=== PATIENT | female | born 2000 | race Caucasian/White ===

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

== ENCOUNTER 2020-03-12 19:20 | Emergency (ER) | payer OTHER, SELFPAY ==
[2020-03-12 19:24] VITALS: BP 135/86; PULSE 100; RESP 18; TEMP 36.6; O2SAT 100
[2020-03-12 21:46] VITALS: BP 123/89; PULSE 92; RESP 20; TEMP 37; O2SAT 100
--- NOTE | 2020-03-12 22:58 | ED.ANXIETY ---
HPI - Anxiety General Chief Complaint: Anxiety Stated Complaint: anxiety attack Time Seen by Provider: 03/12/20 22:48 History of Present Illness HPI narrative: Patient presents with her boyfriend for anxiety and panic attack today. She started breathing hard could not catch her breath heart was racing, then she started stuttering, and having tics . She has a bottle of Lexapro and Atarax in her back that she has not started yet. Her appointment with her psychiatrist is next month. She has a diagnosis of depression and anxiety. She used to have a diagnosis of posttraumatic stress disorder but they remove that. She used to take Klonopin and it worked really well. She took 1 of her boyfriends Xamelvin recinos. It only helped a little. She had to wait to be seen here in the ED, and her symptoms improved. 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 She got lightheaded at work, and they told her that her blood pools in her legs. She is waiting to get released so that she can go back to her job. Now she is worried about money. complaint: anxiety and heart racing Onset (ago): hour(s) Symptoms: dyspnea, palpitations and other Severity: moderate Place: home History of similar episodes: Yes Provoking factors: emotional stress, work/job stress and medication change Related Data Allergies Allergy/AdvReac Type Severity Reaction Status Date / Time Sulfa (Sulfonamide Allergy Mild Rash Verified 02/01/19 15:14 Antibiotics) Review of Systems Review of Systems: Narrative: CONSTITUTIONAL: Denies fever, chills, or sweats. EYES: Denies visual changes, redness, or discharge. ENT: Denies rhinorrhea, congestion, sore throat, or otalgia. CARDIOVASCULAR: Denies chest pain, palpitations, or edema. RESPIRATORY: Denies cough or dyspnea. GASTROINTESTINAL: Denies abdominal pain, nausea, vomiting, or diarrhea. GENITOURINARY: Denies dysuria or hematuria. SKIN: Denies rash or itching. MUSCULOSKELETAL: Denies back pain, joint pain, or myalgia. NEUROLOGIC: Denies headache, numbness, or weakness. PSYCHIATRIC: He has anxiety and depression. [facility] Past Medical History Medical History (Updated 03/12/20 @ 23:01 by Liz Hamm MD) Acute anxiety Exam Narrative: Exam Narrative: GENERAL: Well-appearing, well-nourished, and in no acute distress. Anxious young woman. HEAD: Normocephalic, atraumatic. EYES: PERRLA and EOMI. ENT: Nares clear, no rhinorrhea or epistaxis. Mucous membranes moist. NECK: Supple. CHEST: Clear to auscultation. No respiratory distress. HEART: Regular rate and rhythm. No murmur heard. Normal peripheral pulses. ABDOMEN: Soft, nontender, nondistended, normal active bowel sounds. EXTREMITIES: Normal range of motion. No edema. SKIN: Warm, dry, no rash. NEURO: No focal deficits. Alert and oriented x3. PSYCH: Normal mood and affect. Const: General: no acute distress and alert Orientation/consciousness: patient oriented x3 Course Vital Signs Vital signs: Vital Signs Temperature 97.8 F 03/12/20 19:24 Pulse Rate 100 03/12/20 19:24 Respiratory Rate 18 03/12/20 19:24 Blood Pressure 135/86 03/12/20 19:24 Pulse Oximetry 100 03/12/20 19:24 Temperature 98.6 F 03/12/20 21:46 Pulse Rate 92 03/12/20 21:46 Respiratory Rate 20 03/12/20 21:46 Blood Pressure 123/89 03/12/20 21:46 Pulse Oximetry 100 03/12/20 21:46 MDM - Anxiety Medical Records Attestation: I reviewed the patient's medical records. Lab Data Attestation: I reviewed the patient's lab results. Discharge Plan Discharge Clinical Impression: Acute anxiety, Hyperventilation, Panic disorder Patient Disposition: Home, Self-Care Condition: Improved Instructions: Anxiety (ED) Additional Instructions: Start taking your psych meds. Call your psychiatrist office and see if you can get an earlier appointment. Follow-up/Referrals: Luis Fernando,Kaylee Pepper MD [Primary Care Provider] - (Call make a follow-up
[2020-03-12 23:01] VITALS: BP 105/74; PULSE 69; RESP 18; O2SAT 100
== END 2020-03-12 23:03 | disposition home or self-care (01) ==
PROVIDERS: Emergency Provider Emergency Medicine; PCP Family Medicine
DX: R06.4 Hyperventilation (principal); F41.0 Panic disorder [episodic paroxysmal anxiety]; F32.9 Major depressive disorder, single episode, unspecified
CPT/HCPCS: 99281

== ENCOUNTER 2020-05-27 16:57 | Emergency (ER) | payer OTHER, SELFPAY ==
--- NOTE | 2020-05-27 17:00 | ED.SKABFB ---
HPI - Skin/Abscess/Foreign Bdy General Chief complaint: Skin/Abscess/Foreign Body Stated complaint: insect bite Time Seen by Provider: 05/27/20 17:03 Source: patient and RN notes reviewed Mode of arrival: ambulatory Limitations: no limitations History of Present Illness HPI narrative: 20-year-old female presents with concern for a insect sting on her left upper arm. Reports the sting occurred 30 minutes before arrival, she felt a pain in her arm and noticed redness and swelling. Denies any previous allergies to insect stings. Denies swollen lips, swollen tongue, difficulty breathing, diarrhea, nausea, fever. Denies any intervention MD complaint: insect bite/sting Related Data Home Medications Medication Instructions Recorded Confirmed escitalopram oxalate 20 mg PO DAILY 05/27/20 05/27/20 etonogestrel-ethinyl estradiol 1 vag ring VAGINAL DIRECTED 05/27/20 05/27/20 [NuvaRing] hydroxyzine HCl 50 mg PO BID 05/27/20 05/27/20 Allergies Allergy/AdvReac Type Severity Reaction Status Date / Time Sulfa (Sulfonamide Allergy Mild Rash Verified 02/01/19 15:14 Antibiotics) Review of Systems Review of Systems: Narrative: CONSTITUTIONAL: Denies malaise, chills, sweats, or fever. EYES: Denies visual changes ENT: Denies swollen lips, swollen tongue CARDIOVASCULAR: Denies chest pain, palpitations, or edema. RESPIRATORY: Denies cough or dyspnea. GASTROINTESTINAL: Denies nausea, vomiting, diarrhea SKIN: Denies rash or itching. Reports stinging site on her left upper arm, red, painful MUSCULOSKELETAL: Denies musculoskeletal pain All systems reviewed & are unremarkable except as noted in HPI and below PMFSH Past Medical History Medical History (Updated 05/27/20 @ 17:11 by Elza Knight NP) Acute anxiety Comments At time of signature, agree with nursing past medical, surgical, social and family history. There is no relevant family history pertinent to the presenting complaint Exam Narrative: Exam Narrative: GENERAL: Well-appearing, well-nourished, and in no acute distress. HEAD: Normocephalic EYES: PERRLA, conjunctivae clear ENT: Nares clear. Mucous membranes moist. Oropharynx without edema, erythema or lesions. NECK: Supple. No lymphadenopathy. No jugular venous distension, thyromegaly, or carotid bruits. Carotids were easily palpable bilaterally. CHEST: No respiratory distress. Clear to auscultation. No bony deformities, no asymmetry. Speaks in full sentences. HEART: Regular rate and rhythm. No murmur heard. N SKIN: Warm, dry 7 cm x 4 cm area of erythema, warmth, very mild edema. No induration, open wounds NEURO: Alert and oriented x3. PSYCH: Normal mood and affect Course Course Emergency Course: Patient is aware of diagnosis, understands and agrees to treatment plan. Anticipatory guidance given. Patient agrees to follow-up as directed and is aware of reasons to seek care at the emergency department. Portions of this record may have been created with voice recognition software Vital Signs Vital signs: Vital Signs Temperature 98.9 F 05/27/20 17:06 Pulse Rate 77 05/27/20 17:06 Respiratory Rate 16 05/27/20 17:06 Blood Pressure 123/86 05/27/20 17:06 Pulse Oximetry 99 05/27/20 17:06 Temperature 98.9 F 05/27/20 17:06 Pulse Rate 77 05/27/20 17:06 Respiratory Rate 16 05/27/20 17:06 Blood Pressure 123/86 05/27/20 17:06 Pulse Oximetry 99 05/27/20 17:06 Reviewed. Patient has been instructed to follow up with her primary care provider within the next week regarding her elevated blood pressure today. MDM - Skin/Abscess/Foreign Bdy MDM Narrative Medical decision making narrative: Exam findings show no acute concerns or changes; patient is non-toxic appearing and is in no distress. Patient is appropriate for outpatient treatment and follow-up. Differential Diagnosis Differential diagnosis: Likely abscess of skin or subcutaneous tissue, cellulitis, insect bites and contact dermatiti
[2020-05-27 17:06] VITALS: BP 123/86; PULSE 77; RESP 16; TEMP 37.2; O2SAT 99
== END 2020-05-27 17:14 | disposition home or self-care (01) ==
PROVIDERS: Emergency Provider Nurse Practitioner; PCP Family Medicine
DX: S40.862A Insect bite (nonvenomous) of left upper arm, initial encounter (principal); W57.XXXA Bitten or stung by nonvenomous insect and other nonvenomous arthropods, initial encounter
CPT/HCPCS: 99213; G0463

== ENCOUNTER 2020-10-12 15:47 | Emergency (ER) | payer OTHER, SELFPAY ==
--- NOTE | 2020-10-12 16:08 | ED.SKABFB ---
HPI - Skin/Abscess/Foreign Bdy General Chief complaint: Skin/Abscess/Foreign Body Stated complaint: Splinter in leg Time Seen by Provider: 10/12/20 16:08 Source: patient and RN notes reviewed Mode of arrival: ambulatory Limitations: no limitations History of Present Illness HPI narrative: 20-year-old female presents to [facility] with complaints of having a splinter in her leg. Related Data Allergies Allergy/AdvReac Type Severity Reaction Status Date / Time Sulfa (Sulfonamide Allergy Mild Rash Verified 10/12/20 16:04 Antibiotics) [facility] Past Medical History Medical History (Updated 10/12/20 @ 16:35 by Elza Bridges) Acute anxiety Course Vital Signs Vital signs: Vital Signs Temperature 97.9 F 10/12/20 16:15 Pulse Rate 78 10/12/20 16:15 Respiratory Rate 20 10/12/20 16:15 Blood Pressure 126/72 10/12/20 16:15 Pulse Oximetry 100 10/12/20 16:15 Temperature 97.9 F 10/12/20 16:15 Pulse Rate 78 10/12/20 16:15 Respiratory Rate 20 10/12/20 16:15 Blood Pressure 126/72 10/12/20 16:15 Pulse Oximetry 100 10/12/20 16:15 Reviewed, within defined limits Procedures Foreign Body Removal Foreign Body #1: Foreign Body Removal Date: 10/12/20 Foreign Body Removal Time: 16:35 Time Out Performed: yes Site: left Description of foreign body: other (Splinter) Sedation/Analgesia: other (Used 1.5 mls lidocaine injected underneath.) Technique: manual removal and irrigation Confirmed by:: direct visualization and palpation Complications: pain and bleeding Post-procedure exam: awake, alert, normal BP, normal HR and normal O2 sat Neurovascular: normal distal pulse, normal capillary fill, distal motor function normal, no signs of compartment syndrome and no change from pre-procedure Foreign Body Removal Narrative: To remove without issue small piece of splinter. Patient tolerated well. No bleeding noted. MDM - Skin/Abscess/Foreign Bdy Differential Diagnosis Differential diagnosis: Likely abscess of skin or subcutaneous tissue, insect bites and other (Foreign body skin) Critical Care Time Critical Care Time Critical Care Time: No Discharge Plan Discharge Clinical Impression: Splinter in skin, Vaccine for [id number], combined Patient Disposition: Home, Self-Care Condition: Stable Instructions: Antibiotic Form Additional Instructions: Wash area twice a day with warm soapy water Return to [facility] for new or worsening symptoms Follow-up with primary care provider Prescriptions: New cephalexin [Keflex] 500 mg capsule 500 mg PO Q12H Qty: 10 RF: 0 Follow-up/Referrals: Hermilo,RICK Puri [Primary Care Provider] - Time of Disposition: 16:36
[2020-10-12 16:15] VITALS: BP 126/72; PULSE 78; RESP 20; TEMP 36.6; O2SAT 100
[2020-10-12] MEDS: TETANUS,DIPHTHERIA,AC PERTUSSIS ADULT (0.5 ML) BOOSTRIX IM (16:38)
== END 2020-10-12 16:45 | disposition home or self-care (01) ==
PROVIDERS: Emergency Provider Nurse Practitioner; PCP Nurse Practitioner Family
DX: S71.142A Puncture wound with foreign body, left thigh, initial encounter (principal); W45.8XXA Other foreign body or object entering through skin, initial encounter; Z23 Encounter for immunization
CPT/HCPCS: 90471; 90715; 99213; G0463

== ENCOUNTER 2020-10-15 09:53 | Outpatient (CLI) | payer OTHER, SELFPAY ==
[2020-10-15 11:18] LABS: Hemoglobin A1C 4.8 % (<5.7)
== END 2020-10-15 09:54 | disposition home or self-care (01) ==
PROVIDERS: PCP Family Medicine; Visit Provider Obstetrics & Gynecology
DX: R61 Generalized hyperhidrosis (principal)
CPT/HCPCS: 36415; 83001; 83036; 84443

== ENCOUNTER 2020-12-19 09:14 | Emergency (ER) | payer OTHER, SELFPAY ==
[2020-12-19 09:36] VITALS: BP 124/91; PULSE 90; RESP 16; TEMP 37.1; O2SAT 97
--- NOTE | 2020-12-19 09:45 | ED.NAVMDI ---
HPI - Nausea/Vomiting/Diarrhea General Chief complaint: Upper Respiratory Infection Stated complaint: fever/weakness Source: patient and RN notes reviewed Limitations: no limitations History of Present Illness HPI Narrative: The patient, a non-smoker/nondrinker, presents with 3-day history of nausea and vomiting x1-2 and epigastric pain. Her GI history is remarkable that she was hospitalized at [facility] as a older teenager with noncontributory work-up and diagnosed with reflux disease. Patient reports last emesis was yesterday . 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 She reports her work section was quarantined, after a coworker was diagnosed with Covid. Symptoms are mild to moderate, improving, and better with previous prescribed Zofran-that she wants a refill of. Related Data Home Medications Medication Instructions Recorded Confirmed etonogestrel-ethinyl estradiol 1 vag ring VAGINAL ONCE 12/19/20 12/19/20 [NuvaRing] Allergies Allergy/AdvReac Type Severity Reaction Status Date / Time Sulfa (Sulfonamide Allergy Mild Rash Verified 10/12/20 16:04 Antibiotics) Review of Systems Review of Systems: Narrative: The patient has been informed that they may have pre-hypertension or Hypertension based on a BP reading in the department. I recommend that the patient call the primary care provider listed on their discharge instructions or a physician of their choice this week to arrange follow up for further evaluation of possible pre-hypertension or Hypertension General/Constitutional: No weight loss,fever Eyes: N0: Redness,discharge Ears/Nose/Throat: No: Epistaxis,ear discharge Respiratory: Denies: Hemoptysis Gastrointestinal: Bleeding-rectal, REPORTS vomiting Skin: No Lumps, eruption Neurologic: No Focal Weakness,Sz Hematologic: Denies: Petechiae/Purpura Psychiatric: No: Suicida ideationl All Other Systems: Reviewed and Negative [facility] Past Medical History Medical History (Updated 12/19/20 @ 11:02 by Apolinar Schneider MD) Acute anxiety Social History Social History Gender identity (if verbalized by the patient): Female Comments At time of signature, agree with nursing past medical, surgical, social and family history. There is no relevant family history pertinent to the presenting complaint Exam Narrative: Exam Narrative: General Appearance: Well appearing, No distress EYE: PERRLA, Conjunctiva clear Ears: External ear normal Nose: Normal nose Mouth/Throat: Normal appearing, Normal lips Neck: Supple Respiratory: Airway patent, No respiratory distress Cardiovascular: RRR Abdomen: Soft, Non-tender, inc RLQ; No massess, No organomegaly (no rebound/ surgical signs), Hyperactive bowel sounds Musculoskeletal: Full ROM Skin: Warm, Dry Neurological: A&O x3, CN II-X intact Psychiatric: Normal mood, Normal affect Course Vital Signs Vital signs: Vital Signs Temperature 98.8 F 12/19/20 09:36 Pulse Rate 90 12/19/20 09:36 Respiratory Rate 16 12/19/20 09:36 Blood Pressure 124/91 H 12/19/20 09:36 Pulse Oximetry 97 12/19/20 09:36 Temperature 98.8 F 12/19/20 09:36 Pulse Rate 90 12/19/20 09:36 Respiratory Rate 16 12/19/20 09:36 Blood Pressure 124/91 H 12/19/20 09:36 Pulse Oximetry 97 12/19/20 09:36 MDM - Nausea/Vomiting/Diarrhea Lab Data Labs: Lab Results 12/19/20 Range/Units 09:40 POC SARS CoV-2 Ag Negative (Negative) UCG Bedside Result Negative Reference Range: Negative UCG Bedside Result Negative Reference Range: Negative Urine Glucose Negative Reference Range: Negative Urine Bilirubin 1+
== END 2020-12-19 10:25 | disposition home or self-care (01) ==
PROVIDERS: Emergency Provider Emergency Medicine; PCP Nurse Practitioner Family
DX: R11.11 Vomiting without nausea (principal); K21.9 Gastro-esophageal reflux disease without esophagitis; Z20.822 Contact with and (suspected) exposure to COVID-19
CPT/HCPCS: 81003; 81025; 87077; 87086; 87088; 87426; 99213; C9803; G0463

== ENCOUNTER 2021-08-08 16:38 | Emergency (ER) | payer OTHER, SELFPAY ==
--- NOTE | ~2021-08-08 | XR_ITS ---
EXAMINATION: XR chest 1V portable 08/08/2021 17:42 INDICATION: Sinusitis. Cough. Dizziness. PROCEDURE: AP portable chest COMPARISON: Comparison to multiple prior studies sequentially, with oldest reviewed study dated 06/14. FINDINGS: The lungs are clear. The cardiomediastinal silhouette is within normal limits. There are no pleural effusions. There is no pneumothorax suspected. IMPRESSION: 1: NO ACUTE CARDIOPULMONARY DISEASE. Reviewed, dictated and finalized at location A. [employer]AL[employer] CONTR[employer]
[2021-08-08 16:42] VITALS: BP 120/73; PULSE 85; RESP 18; TEMP 36.1; O2SAT 100
[2021-08-08] MEDS: IPRATROPIUM BR 0.02% INH SOLN 0.5 MG/2.5 ML VIAL INHALATION (17:34)
[2021-08-08] MEDS: ALBUTEROL SULFATE NEB 2.5 MG/0.5 ML INH 5 MG INHALATION (17:34)
--- NOTE | 2021-08-08 18:46 | ED.GENADULT ---
HPI - General Adult General Chief complaint: Upper Respiratory Infection Stated complaint: sinus pressure Time Seen by Provider: 08/08/21 16:54 Source: RN notes reviewed History of Present Illness HPI narrative: Patient presents emergency department from home for upper respiratory infection symptoms. Patient states that since again approximately a month ago but worse over the past 4 days she states she has had sinus pressure with nasal congestion and inability to breathe out of her nose she states that with this she has had a cough this been productive of some clear sputum with some intermittent nausea and intermittent dizziness she denies any measured fevers she denies any chest pain abdominal pain vomiting or diarrhea. Patient states she has not received the Covid vaccination she states she does have an albuterol inhaler which she has been using intermittently Related Data Home Medications Medication Instructions Recorded Confirmed etonogestrel-ethinyl estradiol 1 vag ring VAGINAL ONCE 12/19/20 12/19/20 [NuvaRing] Allergies Allergy/AdvReac Type Severity Reaction Status Date / Time Sulfa (Sulfonamide Allergy Mild Rash Verified 08/08/21 16:46 Antibiotics) Review of Systems Review of Systems: Gen.: Denies fevers or chills ENT: See HPI Respiratory: Reports cough CV: Denies chest pain or palpitations GI: Denies abdominal pain emesis or diarrhea. Reports intermittent nausea Musculoskeletal: Denies back pain or muscle pain Neuro: Denies numbness, tingling, weakness or focal weakness Skin: Denies rash Except as documented, all other systems reviewed and negative [facility] Past Medical History Medical History Acute anxiety Social History Social History (Updated 08/08/21 @ 18:47 by Leo Yancey DO) Smoking status: Never smoker Gender identity (if verbalized by the patient): Female Exam Narrative: APPEARANCE: No acute distress, nontoxic, resting in bed EYES: EOMI HEENT: Normocephalic, atraumatic, TMs clear bilaterally bilateral turbinates boggy, no tenderness over the bilateral frontal sinuses but tenderness over the bilateral maxillary sinus oral mucosa moist no erythema exudate posterior pharynx airway patent RESPIRATORY: No respiratory distress C mild wheezing upper lung villalta no rhonchi or rales CARDIOVASCULAR: Regular rate and rhythm without murmurs rubs or gallops. ABDOMINAL: Soft, nontender, nondistended, no rebound or guarding MUSCULOSKELETAl: Moves all extremities. No clubbing, cyanosis or edema. NEURO: Awake and alert. Following commands, speech normal, no focal deficits SKIN:: Warm, dry. No rashes lesions or abrasions PSYCHIATRIC: Normal affect/mood, Course Course Emergency Course: Patient given breathing treatment in ED repeat lung exam clear to station bilaterally patient states she does have an inhaler at home Discussed with patient results of workup and diagnosis. Discussed need for follow-up with primary care, proper use of medication, and reasons to return to the emergency department. Patient understands and agrees to current treatment plan Vital Signs Vital signs: Vital Signs Temperature 97.0 F L 08/08/21 16:42 Pulse Rate 85 08/08/21 16:42 Respiratory Rate 18 08/08/21 16:42 Blood Pressure 120/73 08/08/21 16:42 Pulse Oximetry 100 08/08/21 16:42 Temperature 97.0 F L 08/08/21 16:42 Pulse Rate 85 08/08/21 16:42 Respiratory Rate 18 08/08/21 16:42 Blood Pressure 120/73 08/08/21 16:42 Pulse Oximetry 100 08/08/21 16:42 Medical Decision Making [facility] Narrative Medical decision making narrative: Patient presents with upper respiratory infections worse with sinus pressure patient had chest x-ray that showed no acute process minimal wheezing upper lung villalta that resolved with breathing treatment flu swab was negative did obtain a Covid swab this patient has not had Covid vaccinations at this time will tr
[2021-08-09 17:10] LABS: SARS-CoV-2 RNA PCR Negative
== END 2021-08-08 19:02 | disposition home or self-care (01) ==
PROVIDERS: Emergency Provider Emergency Medicine; PCP Family Medicine
DX: J06.9 Acute upper respiratory infection, unspecified (principal); Z20.822 Contact with and (suspected) exposure to COVID-19
CPT/HCPCS: 71045; 87804; 94640; 99283; C9803; U0003; U0005

== ENCOUNTER 2021-08-18 21:07 | Emergency (ER) | payer OTHER, SELFPAY ==
--- NOTE | ~2021-08-18 | CT_ITS ---
EXAMINATION: CT facial bones wo con DATE: 08/18/2021 22:48 INDICATION: Left jaw pain. Injury. TECHNIQUE: Computed tomography (CT) of the facial bones and maxillofacial region was performed withou t intravenous contrast. Automated exposure control and iterative reconstruction technique were employ ed. The dose-length product was 239.06 mGy-cm. COMPARISON: None. FINDINGS: The orbits are normal. There is leftward deviation of the nasal septum. There is mild mucos al thickening in the maxillary sinuses. The right mandibular ramus is smaller than the left. No fract ure. IMPRESSION: 1. No acute fracture. 2. Right mandibular ramus is smaller than the left. Reviewed, dictated and finalized at location A. 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
[2021-08-18 21:13] VITALS: BP 128/88; PULSE 87; RESP 20; TEMP 36.2; O2SAT 100
--- NOTE | 2021-08-18 23:39 | ED.EAR ---
HPI - Ear Problem General Chief complaint: Ear Stated complaint: I think I have bad ear infection or an abscess. Time Seen by Provider: 08/18/21 22:20 Source: patient History of Present Illness HPI Narrative: Patient presents with jaw and ear pain. Reports she has had an achy pain that started last night hurts with moving her jaw shortness minimal associated dental pain. Pain in her ear and TMJ and radiate down her jaw. She not noted any ear drainage or change in hearing. Denies any fevers, cough, congestion. She does report she struck her jaw 2 days ago on a pole she cut her lip but did not think much of it monitoring her symptoms at home. Denies any malocclusion Related Data Home Medications Medication Instructions Recorded Confirmed etonogestrel-ethinyl estradiol 1 vag ring VAGINAL ONCE 12/19/20 12/19/20 [NuvaRing] Allergies Allergy/AdvReac Type Severity Reaction Status Date / Time Sulfa (Sulfonamide Allergy Mild Rash Verified 08/18/21 21:15 Antibiotics) Review of Systems Review of Systems: CONSTITUTIONAL: Denies fever, chills, or sweats. EYES: Denies visual changes, redness, or discharge. ENT: Denies rhinorrhea, congestion, sore throat CARDIOVASCULAR: Denies chest pain, palpitations, or edema. RESPIRATORY: Denies cough or dyspnea. GASTROINTESTINAL: Denies abdominal pain, nausea, vomiting, or diarrhea. GENITOURINARY: Denies dysuria or hematuria. SKIN: Denies rash or itching. MUSCULOSKELETAL: Denies back pain, joint pain, or myalgia. NEUROLOGIC: Denies headache, numbness, dizziness, or weakness. PSYCHIATRIC: Denies anxiety or depression. All systems reviewed & are unremarkable except as noted in HPI and below PMFSH Past Medical History Medical History Acute anxiety Social History Social History Smoking status: Never smoker Gender identity (if verbalized by the patient): Female Exam Narrative: GENERAL: Well-appearing, well-nourished, and in no acute distress. HEAD: Normocephalic, atraumatic. EYES: PERRLA and EOMI. ENT: Nares clear, no rhinorrhea or epistaxis. Mucous membranes moist. EAC clear bilaterally TMs clear bilaterally mild tenderness with palpation of the left upper molars no uvular deviation NECK: Supple. No masses. No JVD EXTREMITIES: Normal range of motion. No edema. SKIN: Warm, dry, no rash. NEURO: No focal deficits. Alert and oriented x3. PSYCH: Normal mood and affect. Course Reevaluation(s) Reevaluation #1: Patient is resting comfortably results and plan reviewed with patient. Patient comfortable with outpatient plan. Date: 08/18/21 Time: 23:47 Vital Signs Vital signs: Vital Signs Temperature 36.2 C L 08/18/21 21:13 Pulse Rate 87 08/18/21 21:13 Respiratory Rate 20 08/18/21 21:13 Blood Pressure 128/88 08/18/21 21:13 Pulse Oximetry 100 08/18/21 21:13 Temperature 36.2 C L 08/18/21 21:13 Pulse Rate 82 08/19/21 00:15 Respiratory Rate 18 08/19/21 00:15 Blood Pressure 108/72 08/19/21 00:15 Pulse Oximetry 99 08/19/21 00:15 Medical Decision Making MDM Narrative Medical decision making narrative: H&P as above, vss, pt looks clinically well, exam tenderness around the TMJ and upper jawline, imaging clinically unremarkable, additional labs/img considered, symptomatic relief available as needed, on reevaluation pt continues to looks clinically well. Suspect symptoms may represent dental infection, dns airway compromise, fracture, Leo's. plan to tx/monitor as op w/ pcm f/u findings/plan discussed with pt, pt agree/comfortable with plan, return precautions given Vital Signs Vital Signs: Vital Signs Temperature 36.2 C L 08/18/21 21:13 Pulse Rate 87 08/18/21 21:13 Respiratory Rate 20 08/18/21 21:13 Blood Pressure 128/88 08/18/21 21:13 Pulse Oximetry 100 08/18/21 21:13 Temperature 36.2 C L 08/18/21 21:13 Pulse R
[2021-08-19 00:15] VITALS: BP 108/72; PULSE 82; RESP 18; O2SAT 99
== END 2021-08-19 00:15 | disposition home or self-care (01) ==
PROVIDERS: Emergency Provider Emergency Medicine; PCP Family Medicine
DX: R68.84 Jaw pain (principal); H92.09 Otalgia, unspecified ear
CPT/HCPCS: 70486; 99284

== ENCOUNTER 2021-11-13 13:17 | Emergency (ER) | payer OTHER, SELFPAY ==
[2021-11-13 13:24] VITALS: BP 139/83; PULSE 73; RESP 20; TEMP 37.4; O2SAT 99
[2021-11-13 13:28] VITALS: BP 139/83; PULSE 73; RESP 20; TEMP 37.4; O2SAT 99
--- NOTE | 2021-11-13 13:54 | ED.FEMALEGU ---
HPI - Female Genitourinary General Chief complaint: Urogenital-Female Stated complaint: uti Time Seen by Provider: 11/13/21 13:45 Source: patient Mode of arrival: ambulatory Limitations: no limitations History of Present Illness HPI Narrative: Debbie Rodriguez monae 21 yo female with no PMH who comes to [facility] with 1 day of dysuria and bladder spasms she tries to urinate Related Data Home Medications Medication Instructions Recorded Confirmed etonogestrel-ethinyl estradiol 1 vag ring VAGINAL ONCE 12/19/20 11/13/21 [NuvaRing] Allergies Allergy/AdvReac Type Severity Reaction Status Date / Time Sulfa (Sulfonamide Allergy Mild Rash Verified 11/13/21 13:25 Antibiotics) Review of Systems Review of Systems: CONSTITUTIONAL: Denies fever, chills, sweats. EYES: Denies visual changes, redness, discharge. ENT: Denies rhinorrhea, congestion, sore throat, otalgia. CARDIOVASCULAR: Denies chest pain, palpitations, edema. RESPIRATORY: Denies dyspnea, wheezing, cough GASTROINTESTINAL: Denies abdominal pain, nausea, vomiting, diarrhea. GENITOURINARY: has dysuria, hematuria, abnormal discharge SKIN: Denies rash or itching. NEUROLOGIC: Denies numbness, or focal weakness. PSYCHIATRIC: Denies anxiety or depression. [facility] Past Medical History Medical History Acute anxiety Social History Social History (Updated 11/13/21 @ 13:56 by Kacy Paredes CNP) Smoking status: Never smoker Alcohol intake: never Gender identity (if verbalized by the patient): Female Comments At time of signature, I agree with nursing past medical, surgical, social and family history. There is no relevant family history pertinent to the presenting complaint. Exam Narrative: GENERAL: This is a well-nourished, well-developed patient, in mild distress. HEAD: normocephalic, atraumatic. EYES: Sclera clear/white. Vision is grossly intact. EARS: External ears normal,. Hearing grossly intact. NOSE: External nose normal without nasal discharge, nares without redness, no rhinorrhea. THROAT: Mucous membranes moist, NECK: Neck supple, CARDIOVASCULAR: Regular rate and rhythm without murmurs, gallops, or rubs. RESPIRATORY: Clear to auscultation. Breath sounds equal bilaterally. No wheezes, rales, or rhonchi. GASTROINTESTINAL: Abdomen soft, complains of bladder spasm SKIN: warm, intact with no suspicious lesions or rash, good texture and turgor. NEURO: awake, alert, and oriented to person, place and time. There were no obvious focal neurologic abnormalities. Steady gait EXTREMITIES: Normal range of motion. BACK: Nontender without deformity Course Course Emergency Course: Patient here with dysuria x1 day UA shows 2+ blood positive ketones positive nitrate positive leukocyte Started on Keflex and Pyridium-instructions concerning the medications given Level of Care: Express Care Visit Vital Signs Vital signs: Vital Signs Temperature 99.4 F 11/13/21 13:24 Pulse Rate 73 11/13/21 13:24 Respiratory Rate 20 11/13/21 13:24 Blood Pressure 139/83 11/13/21 13:24 Pulse Oximetry 99 11/13/21 13:24 Temperature 99.4 F 11/13/21 13:28 Pulse Rate 73 11/13/21 13:28 Respiratory Rate 20 11/13/21 13:28 Blood Pressure 139/83 11/13/21 13:28 Pulse Oximetry 99 11/13/21 13:28 MDM - Female Genitourinary Differential Diagnosis Differential diagnosis: Likely urinary tract infection, cystitis and other Lab Data Labs: Urine Glucose Negative Reference Range: Negative Urine Bilirubin Negative Reference Range: Negative Urine Ketone Trace Reference Range: Negative Urine Specific [place] 1.030 Reference Range:1.001-1.035
== END 2021-11-13 14:01 | disposition home or self-care (01) ==
PROVIDERS: Emergency Provider Nurse Practitioner; PCP Nurse Practitioner Family
DX: N30.01 Acute cystitis with hematuria (principal)
CPT/HCPCS: 81003; 87077; 87086; 87186; 99213; G0463

== ENCOUNTER 2021-12-25 08:12 | Emergency (ER) | payer OTHER, SELFPAY ==
--- NOTE | 2021-12-25 08:16 | ED.URI ---
HPI - URI/Sore Throat General Chief Complaint: Upper Respiratory Infection Stated Complaint: sore throat Time Seen by Provider: 12/25/21 08:19 Source: patient Mode of arrival: ambulatory Limitations: no limitations History of Present Illness HPI Narrative: Ms. Rodriguez is a 21-year-old female patient presenting to the clinic today with complaints of a sore throat, body aches, nausea, and fever since Thursday. She reports that she took a at home Covid test on Thursday and it was negative. No known exposure to anyone with Covid, flu, or strep. She reports that she gets strep very easily. Fever highest of 102 ?F per patient. Reports that her boyfriend is also having the similar symptoms. Also reporting some urinary frequency. MD elicited complaint: sore throat Related Data Home Medications Medication Instructions Recorded Confirmed etonogestrel-ethinyl estradiol 1 vag ring VAGINAL ONCE 12/19/20 12/25/21 [NuvaRing] Allergies Allergy/AdvReac Type Severity Reaction Status Date / Time Sulfa (Sulfonamide Allergy Mild Rash Verified 12/25/21 08:17 Antibiotics) Review of Systems Review of Systems: Pertinent positives per HPI. Patient denies any rash, headache, visual changes, dizziness, shortness of breath, chest pain, palpitations, vomiting, diarrhea, constipation, or abdominal pain PMFSH Past Medical History Medical History Acute anxiety Social History Social History Smoking status: Never smoker Alcohol intake: never Gender identity (if verbalized by the patient): Female Comments At the time of my signature, I reviewed and agree with the nursing past medical, surgical, social, and family history. There is no relevant family history pertinent to the patient complaint. Exam Narrative: General: Well-developed, well nourished, thin, in no apparent distress Head: Normocephalic, atraumatic Eyes: Pupils equally round and reactive to light bilaterally, EOM intact, sclera and conjunctive clear, no discharge, lids normal Ears: TMs intact and clear, ear canals clear, no drainage, grossly hearing normal. Nose: Nares patent, clear nasal discharge, mild inflammation, no sinus tenderness. Mouth: Oral pharynx without lesions or masses, good dentition, MMM. Postnasal drip, oropharynx red, voice is hoarse Neck: Supple, trachea midline, mild enlargement of anterior cervical nodes, no thyroid masses or goiter palpable. Cardio: Regular rate and rhythm, s1 and s2 normal, no murmur appreciated. Resp: Clear to auscultation bilaterally, no rhonchi, rales, wheezing or rubs Abdomen: Soft, pliable, bowel sounds present in all 4 quadrants, nontender, no organomegaly, no CVAT tenderness. Course Course Emergency Course: Portions of this record may have been created with voice recognition software. Level of Care: Express Care Visit Vital Signs Vital signs: Vital signs reviewed MDM - URI/Sore Throat MDM Narrative Medical decision making narrative: At this time of assessment patient is resting comfortably on the exam table. She reports fever, cough, sore throat, nausea, and nasal congestion since Thursday. Her voice is hoarse. Has taken an at home Covid testing that was negative. She is also reporting urinary frequency with the symptoms. Urinalysis negative for any blood, leukocytes, or nitrates. Influenza testing negative and strep screen is positive. Patient treated for strep pharyngitis with amoxicillin, patient also reports that she gets vaginal yeast infections at times when taking antibiotics so I did include a prescription for Diflucan. She voiced understanding of supportive measures and discharge instructions. Differential Diagnosis Differential diagnosis: Likely upper respiratory infection, croup, otitis media, sinusitis, viral infection, bronchitis, influenza, pharyngitis and other (Influenza, Co
[2021-12-25 08:20] VITALS: BP 115/87; PULSE 111; RESP 16; TEMP 37.2; O2SAT 99
== END 2021-12-25 08:48 | disposition home or self-care (01) ==
PROVIDERS: Emergency Provider Nurse Practitioner Family; PCP Nurse Practitioner Family
DX: J02.0 Streptococcal pharyngitis (principal)
CPT/HCPCS: 81003; 87804; 87880; 99213; G0463

== ENCOUNTER 2022-03-10 10:27 | Emergency (ER) | payer OTHER, SELFPAY ==
[2022-03-10 10:41] VITALS: BP 101/68; PULSE 123; RESP 16; TEMP 36.9; O2SAT 100
--- NOTE | 2022-03-10 11:00 | ED.HA ---
HPI - Headache General Chief Complaint: Headache Stated Complaint: Migraine Time Seen by Provider: 03/10/22 11:00 Source: patient and RN notes reviewed Mode of arrival: ambulatory Limitations: no limitations History of Present Illness HPI Narrative: 22 y/o female presented for c/o low back pain, nausea, and sore throat since yesterday. States she had a temp of 102.5 yesterday. Endorses urinary frequency. States back pain shoots to bilateral knees. 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 Unsure of injury. Endorses strep positive and treatment one month ago. States it feels similar. States yesterday she had migraine behind eyes with blurred vision, she took ibuprofen sudafed benadryl. Now rates headache 1/0. Hx tonsillectomy. Related Data Home Medications Medication Instructions Recorded Confirmed etonogestrel 0.12 mg-ethinyl 1 vag ring vaginal ONCE 12/19/20 03/10/22 estradiol 0.015 mg/24 hr vaginal ring (NuvaRing) Allergies Allergy/AdvReac Type Severity Reaction Status Date / Time Sulfa (Sulfonamide Allergy Mild Rash Verified 12/25/21 08:17 Antibiotics) Review of Systems Review of Systems: CONSTITUTIONAL: Reports fever, chills ENT: Denies rhinorrhea, congestion CARDIOVASCULAR: Denies chest pain, palpitations, or edema. RESPIRATORY: Denies cough or dyspnea. GASTROINTESTINAL: Endorses nausea, Denies hematochezia, melena, hematemesis, vomiting, diarrhea. GENITOURINARY: Reports frequency. Denies dysuria, hematuria, or CVA tenderness. SKIN: Denies rash, itching, or wounds. MUSCULOSKELETAL: Denies joint pain, or myalgia. NEUROLOGIC: Denies numbness, tingling, or weakness. All systems reviewed & are unremarkable except as noted in HPI and below PMFSH Past Medical History Medical History Acute anxiety Social History Social History Smoking status: Never smoker Alcohol intake: never Gender identity (if verbalized by the patient): Female Comments At time of signature, I have reviewed and agree with nursing past medical, surgical, social and family history unless otherwise noted. Please see nursing chart for further information. There is no relevant family history pertinent to the presenting complaint Exam Narrative: GENERAL: ill-appearing, and in no acute distress. Appears to have rigors, states she is not cold EYES: EOMI. Conjunctivae normal. ENT: Mucous membranes pink and moist. CHEST: No respiratory distress. Clear to auscultation. HEART: Regular rate and rhythm. No murmur appreciated. Normal peripheral pulses. ABDOMEN: abd soft, nondistended, normal active bowel sounds. Nontender abdomen, No guarding, rebound tenderness, asymmetry, no CVA tenderness EXTREMITIES: Low back is nontender with palpation, no redness bruising or lesions; Normal range of motion. No edema. gait steady SKIN: Warm, dry, no rash. Capillary refill normal. Normal skin turgor. NEURO: No focal deficits. Alert and oriented x3. Course Course Emergency Course: Patient is aware of diagnosis, understands and agrees to treatment plan. Anticipatory guidance given. Patient agrees to follow-up as directed and is aware of reasons to seek care at the emergency department. Portions of this record may have been created with voice recognition software Level of Care: Express Care Visit MDM - Headache MDM Narrative Medical decision making narrative: strep negative , urine preg negative. urine dip shows infection; Zofran helped nausea, back pain persists. She states she has muscle relaxer at home. She is advised to rest and avoid lifting, she declines work note. patient is non-toxic appearing and is in no distress. Appropriate for treatment of UTI as outpt. Differential Diagnosis Differential diagnosis: Likely migraine, sinusitis and other (uti, lumbar radiculopathy, low back strain) L
[2022-03-10] MEDS: ONDANSETRON HCL ODT 4 MG TABLET SUBLINGUAL (11:22)
== END 2022-03-10 12:28 | disposition home or self-care (01) ==
PROVIDERS: Emergency Provider Nurse Practitioner Family; PCP Nurse Practitioner Family
DX: N39.0 Urinary tract infection, site not specified (principal); M54.50 Low back pain, unspecified
CPT/HCPCS: 81003; 81025; 87081; 87086; 87880; 99213; A9270; G0463

== ENCOUNTER 2022-12-25 17:55 | Emergency (ER) | payer OTHER, MEDICAID, SELFPAY ==
[2022-12-25 18:05] VITALS: BP 120/82; PULSE 90; RESP 16; TEMP 36.7; O2SAT 100
--- NOTE | 2022-12-25 18:11 | ED.EAR ---
HPI - Ear Problem General Chief complaint: Ear Stated complaint: unknown Time Seen by Provider: 12/25/22 18:11 Source: patient Mode of arrival: ambulatory Limitations: no limitations History of Present Illness HPI Narrative: 22 yo F presents with c/o R ear pain, headache, dizziness and nausea for approx. 3 days. Symptoms getting progressively worse. Afebrile. similar symptoms with previous ear infections. All systems reviewed and negative except as noted above. Related Data Home Medications Medication Instructions Recorded Confirmed etonogestrel 0.12 mg-ethinyl 1 vag ring vaginal ONCE 12/19/20 12/25/22 estradiol 0.015 mg/24 hr vaginal ring (NuvaRing) doxycycline hyclate 20 mg tablet 20 mg PO BID 12/25/22 12/25/22 Allergies Allergy/AdvReac Type Severity Reaction Status Date / Time Sulfa (Sulfonamide Allergy Mild Rash Verified 12/25/22 18:09 Antibiotics) Review of Systems Review of Systems: CONSTITUTIONAL: Denies fever, chills, or sweats. EYES: Denies visual changes, redness, or discharge. ENT: Denies rhinorrhea, congestion, sore throat. Reports right ear pain. CARDIOVASCULAR: Denies chest pain, palpitations, or edema. RESPIRATORY: Denies cough or dyspnea. GASTROINTESTINAL: Denies abdominal pain, nausea, vomiting, or diarrhea. GENITOURINARY: Denies dysuria or hematuria. SKIN: Denies rash or itching. MUSCULOSKELETAL: Denies back pain, joint pain, or myalgia. NEUROLOGIC: Reports headache, dizziness. Denies numbness, or weakness. PSYCHIATRIC: Denies anxiety or depression. All other systems reviewed are negative, except as documented in HPI. PMFSH Past Medical History Medical History Acute anxiety Social History Social History Smoking status: Never smoker Alcohol intake: never Gender identity (if verbalized by the patient): Female Comments At time of signature, agree with nursing past medical, surgical, social and family history. There is no relevant family history pertinent to the presenting complaint. Exam Narrative: GENERAL: This is a well-nourished, well-developed patient, in no apparent distress. HEAD: normocephalic, atraumatic. EYES: PERRL. Sclera clear/white. Vision is grossly intact. EARS: External ears normal, auditory canals clear and without drainage. Right TM is erythematous and retracted. Left TM is normal. NOSE: External nose normal with no obvious nasal discharge, nares without redness, no rhinorrhea. THROAT: Mucous membranes moist, posterior pharynx clear. NECK: Neck supple, non-tender without lymphadenopathy, masses or thyromegaly. CARDIOVASCULAR: Regular rate and rhythm without murmurs, gallops, or rubs. RESPIRATORY: Clear to auscultation. Breath sounds equal bilaterally. No wheezes, rales, or rhonchi. SKIN: warm, Dry, intact with no suspicious lesions or rash, good texture and turgor. NEURO: awake, alert, and oriented to person, place and time. There were no obvious focal neurologic abnormalities. EXTREMITIES: No joint tenderness, effusion, or edema noted. Course Course Level of Care: Express Care Visit Vital Signs Vital signs: Vital Signs Temperature 36.7 C 12/25/22 18:05 Pulse Rate 90 12/25/22 18:05 Respiratory Rate 16 12/25/22 18:05 Blood Pressure 120/82 12/25/22 18:05 Pulse Oximetry 100 12/25/22 18:05 Oxygen Delivery Room Air 12/25/22 18:05 Temperature 36.7 C 12/25/22 18:05 Pulse Rate 90 12/25/22 18:05 Respiratory Rate 16 12/25/22 18:05 Blood Pressure 120/82 12/25/22 18:05 Pulse Oximetry 100 12/25/22 18:05 Oxygen Delivery Room Air 12/25/22 18:05 Reviewed Medical Decision Making MDM Narrative Medical decision making narrative: Patient is aware of diagnosis, understands and agrees to treatment plan. Anticipatory guidance given. Patient agrees to follow-up as directed and is aware of reasons to se
== END 2022-12-25 18:20 | disposition home or self-care (01) ==
PROVIDERS: Emergency Provider Nurse Practitioner Family; PCP Student in an Organized Health Care Education/Training Program
DX: H66.91 Otitis media, unspecified, right ear (principal)
CPT/HCPCS: 99213; G0463

== ENCOUNTER 2024-06-28 18:24 | Emergency (ER) | payer OTHER, SELFPAY ==
[2024-06-28 18:30] VITALS: BP 121/82; PULSE 79; RESP 16; TEMP 36.8; O2SAT 100
--- NOTE | 2024-06-28 18:58 | ED.SKABFB ---
HPI - Skin/Abscess/Foreign Bdy General Chief complaint: Skin/Abscess/Foreign Body Stated complaint: Insect Bite Time Seen by Provider: 06/28/24 18:58 Source: patient, RN notes reviewed and old records reviewed Mode of arrival: ambulatory Limitations: no limitations History of Present Illness HPI narrative: Patient presents with complaints of what she believes to be an insect bite to the right upper arm. She reports that she began to notice a reddened area with itching and burning 2 or 3 days ago, the site has increased in size and discomfort. There is a pinhole sized opening in the center, no active drainage. She did not see anything bite her, she denies any known injury or trauma. She voices no other concerns or complaints. Denies any fever, but endorses chills and sweats. She has not taken anything for her symptoms Related Data Home Medications Medication Instructions Recorded Confirmed etonogestrel 0.12 mg-ethinyl 1 vag ring vaginal ONCE 12/19/20 06/28/24 estradiol 0.015 mg/24 hr vaginal ring (NuvaRing) Allergies Allergy/AdvReac Type Severity Reaction Status Date / Time Sulfa (Sulfonamide Allergy Mild Rash Verified 06/28/24 18:24 Antibiotics) Review of Systems Review of Systems: All systems reviewed & are unremarkable except as noted in HPI and below Constitutional: Constitutional: Reports no additional constitutional complaints ENT: Reports system reviewed and no additional complaints, except as documented Cardiovascular: Cardiovascular: Reports no additional cardiovascular complaints Respiratory: Respiratory: Reports no additional respiratory complaints Gastrointestinal: Gastrointestinal: Reports no additional gastrointestinal complaints Integumentary/Breasts: Skin/Breast: Reports system reviewed and no additional complaints, except as docu, Reports as per HPI and Reports sores PMFSH Past Medical History Medical History Acute anxiety Social History Social History Smoking status: Never smoker Alcohol intake: never Gender identity (if verbalized by the patient): Female Comments At the time of my signature, I reviewed and agree with the nursing past medical, surgical, social, and family history. There is no relevant family history pertinent to the patient complaint. Exam Const: General: cooperative, no acute distress, alert and awake Orientation/consciousness: oriented to person, oriented to place and oriented to time HENMT: Head: normal to inspection Resp: Effort & Inspection: normal respiratory effort and able to speak in complete sentences Auscultation: clear to auscultation bilaterally, no crackles, no rales, no rhonchi and no wheezes Cardio: Palpation: normal PMI Rate: regular rate Rhythm: regular rhythm Heart sounds: S1 normal heart sound present and S2 normal heart sound present Skin: Full body images: 1. 2.5 x 2.5 cm area of induration with pinhead size central opening, no drainage Neuro: General: oriented to person, oriented to place and oriented to time Cranial nerves: Yes CN's II-XII intact bilaterally Psych: Appearance: grossly normal Thought process: Normal thought process present Insight: Good insight present (Psych) Judgement: Good judgement present (Psych) Course Course Level of Care: Express Care Visit Vital Signs Vital signs: Vital Signs Temperature 98.3 F 06/28/24 18:30 Pulse Rate 79 06/28/24 18:30 Respiratory Rate 16 06/28/24 18:30 Blood Pressure 121/82 06/28/24 18:30 Pulse Oximetry 100 06/28/24 18:30 Oxygen Delivery Room Air 06/28/24 18:30 Temperature 98.3 F 06/28/24 18:30 Pulse Rate 79 06/28/24 18:30 Respiratory Rate 16 06/28/24 18:30 Blood Pressure 121/82 06/28/24 18:30 Pulse Oximetry 100 06/28/24 18:30 Oxygen Delivery Room Air 06/28/24 18:30 Reviewed MDM - Skin/Abscess/F
== END 2024-06-28 19:18 | disposition home or self-care (01) ==
PROVIDERS: Emergency Provider Nurse Practitioner Family; PCP Student in an Organized Health Care Education/Training Program
DX: L03.113 Cellulitis of right upper limb (principal)
CPT/HCPCS: 99213; G0463

== ENCOUNTER 2024-09-28 07:10 | Outpatient (CLI) | payer OTHER, SELFPAY ==
--- NOTE | ~2024-09-28 | NM_ITS ---
EXAMINATION: NM bone SPECT DATE: 09/28/2024 13:37 INDICATION: Mandibular condylar hyperplasia. TECHNIQUE: 25.7 mCi Tc-99m HDP was administered intravenously. Delayed whole-body scintigrams were o btained. COMPARISON: CT maxillofacial 08/18/2021 FINDINGS: By CT, the right mandibular condyle is abnormally small, and the left mandible condyle is n ormal in size. Activity in the right mandibular condyle is lower than the left. IMPRESSION: 1. Abnormally small right mandibular condyle with lower activity than the left. Reviewed, dictated and finalized at location A. [employer]
== END 2024-09-28 07:11 | disposition home or self-care (01) ==
PROVIDERS: PCP Student in an Organized Health Care Education/Training Program
DX: M26.643 Arthritis of bilateral temporomandibular joint (principal); M26.03 Mandibular hyperplasia
CPT/HCPCS: 78803; A9503

== ENCOUNTER 2025-03-23 12:50 | Outpatient (CLI) | payer OTHER, SELFPAY ==
--- NOTE | ~2025-03-23 | US_ITS ---
US pelvic complete Ordering provider: Sara Tom, [employer] History: . postcoital contact bleeding . Comparison: None. Technique: Transabdominal ultrasound of the pelvis (Doppler ultrasound interrogation techniques used as needed for this exam.) FINDINGS: CERVIX: Normal. UTERUS: Measures 6.6x 2.8x 4.2 cm in length which is within normal limits and is anteverted. No myom etrial masses. ENDOMETRIUM: Normal in thickness measuring 4 mm. No endometrial masses, cysts or fluid. CUL DE SAC: No free fluid. RIGHT OVARY: Normal in size measuring 3.2x 1.7x 2.5 cm. Normal echotexture. Doppler vascular flow pre sent. Follicles are seen. LEFT OVARY: Normal in size measuring 2.7x 1.7x 2.8 cm. Normal echotexture. Doppler vascular flow pres ent. Follicles are seen. ADNEXA: Normal. No mass. IMPRESSION: normal pelvic ultrasound. Reviewed, dictated and finalized at location A. IMPRESSION: normal pelvic ultrasound.
== END 2025-03-23 12:51 | disposition home or self-care (01) ==
LOC: MICIMG 12:51
PROVIDERS: PCP Student in an Organized Health Care Education/Training Program; Visit Provider Nurse Practitioner
DX: N93.0 Postcoital and contact bleeding (principal)
CPT/HCPCS: 76856